=== PATIENT | male | born 1980 | race Two or more races ===

== ENCOUNTER 2021-05-30 12:40 | Emergency (ER) | payer SELFPAY ==
[~2021-05-30] VITALS: Ht 175.3 cm; Wt 101.0 kg
--- NOTE | 2021-05-30 13:55 | RAD ---
INDICATION: Reason: cough / Spl. Instructions: / History: COMPARISON: None. FINDINGS: Single view of chest obtained. Mild patchy opacities within the bilateral lungs. Cardiac silhouette unremarkable. IMPRESSION: * Mild patchy opacities within the bilateral lungs which could be secondary to infiltrate. Would cor relate with infectious symptoms. Electronically signed by: Bruce Giron MD (05/30/2021 1:53 PM) [id number]
[2021-05-30] MEDS ORDERED: cefTRIAXone IM 1 GM VIAL IM ONE (15:15)
[2021-05-30] MEDS ORDERED: LIDOCAINE 1% PF 2 ML VIAL. INJ ONE (15:15)
[2021-05-30] MEDS ORDERED: AMOX1TAB61 PO (15:33)
--- NOTE | 2021-05-30 15:34 | PHYS DOC ---
Past Medical History Additional Past Medical Histor: SINUSES Past Surgical History: Other Additional Past Surgical Histo: RT FOOT General Adult EDM: Chief Complaint: FLU SYMPTOM HPI: HPI: Patient is a 40 year old male with no significant medical history who presents to the ED today complaining of not feeling well after being diagnosed with COVID-19 last week. Patient reports intermittent fevers that are well controlled by Tylenol or Motrin. Reports cough, denies any shortness of breath. States the girlfriend is also positive for Covid Review of Systems: Review of Systems: Constitutional: Reports fever and not feeling well Eyes: Denies change in visual acuity. [] HENT: Denies nasal congestion or sore throat. [] Respiratory: Reports cough, denies shortness of breath. [] Cardiovascular: Denies chest pain or edema. [] GI: Denies abdominal pain, nausea, vomiting, bloody stools or diarrhea. [] : Denies dysuria. [] Musculoskeletal: Denies back pain or joint pain. [] Integument: Denies rash. [] Neurologic: Denies headache, focal weakness or sensory changes. [] Psychiatric: Denies depression or anxiety. [] Heart Score: C/O Chest Pain: N/A Risk Factors: Risk Factors: DM, Current or recent (<one month) smoker, HTN, HLP, family history of CAD, obesity. Risk Scores: Score 0 - 3: 2.5% MACE over next 6 weeks - Discharge Home Score 4 - 6: 20.3% MACE over next 6 weeks - Admit for Clinical Observation Score 7 - 10: 72.7% MACE over next 6 weeks - Early Invasive Strategies Current Medications: Current Medications Medications (Trade) Dose Ordered Sig/Rosy Start Time Stop Time Status Last Admin Dose Admin Ceftriaxone Sodium (Rocephin Im) 1 gm 1X ONCE 05/30/21 15:15 05/30/21 15:16 DC Lidocaine HCl (Xylocaine-Mpf 1% 2ml Vial) 2 ml 1X ONCE 05/30/21 15:15 05/30/21 15:16 DC Allergies: Allergies: Allergies Coded Allergies Type Severity Reaction Last Updated Verified No Known Drug Allergies 05/30/21 No Physical Exam: PE: Constitutional: Well developed, well nourished, no acute distress, non-toxic appearance. [] HENT: Normocephalic, atraumatic, bilateral external ears normal, oropharynx moist, no oral exudates, nose normal. [] Eyes: PERRLA, EOMI, conjunctiva normal, no discharge. [] Neck: Normal range of motion, no tenderness, supple, no stridor. [] Cardiovascular:Heart rate regular rhythm, no murmur [] Lungs & Thorax: Bilateral breath sounds clear to auscultation [] Abdomen: Bowel sounds normal, soft, no tenderness, no masses, no pulsatile masses. [] Skin: Warm, dry, no erythema, no rash. [] Back: No tenderness, no CVA tenderness. [] Extremities: No tenderness, no cyanosis, no clubbing, ROM intact, no edema. [] Neurologic: Alert and oriented X 3, normal motor function, normal sensory function, no focal deficits noted. [] Psychologic: Affect normal, judgement normal, mood normal. [] Current Patient Data: Vital Signs: Vital Signs Date Time Temp Pulse Resp B/P (MAP) Pulse Ox O2 Delivery O2 Flow Rate FiO2 05/30/21 13:25 98.9 85 16 125/72 96 Room Air 98.9 EKG: EKG: [] Radiology/Procedures: Radiology/Procedures: []PROCEDURE: CHEST AP ONLY INDICATION: Reason: cough / Spl. Instructions: / History: COMPARISON: None. FINDINGS: Single view of chest obtained. Mild patchy opacities within the bilateral lungs. Cardiac silhouette unremarkable. IMPRESSION: * Mild patchy opacities within the bilateral lungs which could be secondary to infiltrate. Would correlate with infectious symptoms. Electronically signed by: Bernard Giron MD (05/30/2021 1:53 PM) [id number] DICTATED and SIGNED BY: BERNARD GIRON MD DATE: 05/30/21 [id number] 0 Course & Med Decision Making: Course & Med Decision Making Pertinent Labs and Imaging studies reviewed. (See chart for details) This is a 40-year-old male patient presented to the ED today complaining of not feeling well. Patient was diagnosed with COVID-19 last week. His symptoms include cough and fever. No shortness of breath. O2 sats 96% and above on room air. He is afebrile. Chest x-ray was noted for pneumonia. Discharged on Augmentin. Dragon Disclaimer: Dragon Disclaimer: This electronic medical record was generated, in whole or in part, using a voice recognition dictation system. Departure Departure Impression: Primary Impression: Pneumonia of both lower lobes Qualified Codes: J18.9 - Pneumonia, unspecified organism Additional Impressions: Fever Qualified Codes: R50.9 - Fever, unspecified Lab test positive for detection of COVID-19 virus Disposition: HOME / SELF CARE / HOMELESS Condition: STABLE Referrals: NO PCP (PCP) please follow up with your doctor in 1-2 weeks Patient Instructions: Pneumonia, Adult Additional Instructions: You have COVID-19 and pneumonia. We will put you on antibiotics, ensure you complete them. Follow-up with your primary care doctor in 1 to 2 weeks. Continue to quarantine yourself for 7 more days. Complete your antibiotics. Push fluids, rest. Maintain good hand hygiene. Please wear your mask around other people Scripts Amoxicillin/Potassium Clav (AUGMENTIN [id number] TABLET) 1 Each Tablet 1 TAB PO BID for 7 Days, #14 TAB 0 Refills Prov: ILYA CHAPPELL APRN 05/30/21 ILYA CHAPPELL APRN May 30, 2021 15:34
[2021-05-30 16:47] VITALS: BP 130/75
== END 2021-05-30 17:20 | disposition home or self-care (01) ==
LOC: ER 12:40
DX: U07.1 COVID-19 (principal); J18.9 Pneumonia, unspecified organism
CPT/HCPCS: 71045; 96372; 99283; J0696